=== PATIENT | male | born 1940 | race African-American/Black ===

== ENCOUNTER 2023-08-04 10:46 | Day surgery (SDC) | payer OTHER ==
[2023-07-29 16:38] VITALS: BMI 31.8
[2023-08-04 11:24] VITALS: RESP 18
[2023-08-04 13:19] VITALS: TEMP 97
[2023-08-04 13:22] VITALS: BP 146/77; PULSE 70
== END 2023-08-04 13:45 | disposition home or self-care (01) ==
LOC: FASU-ENDO 10:46
PROVIDERS: ATTEND Internal Medicine Gastroenterology
PROC: 0DB98ZX Excision of Duodenum, Via Natural or Artificial Opening Endoscopic, Diagnostic (ICD-10-PCS; 2023-08-04)
PROC: 0DB68ZX Excision of Stomach, Via Natural or Artificial Opening Endoscopic, Diagnostic (ICD-10-PCS; principal; 2023-08-04 12:46)
DX: K29.50 Unspecified chronic gastritis without bleeding (principal); K29.80 Duodenitis without bleeding
CPT/HCPCS: 82962; 88305-TC; 88342-TC